=== PATIENT | male | born 1945 | race Caucasian/White ===

== ENCOUNTER 2016-08-18 14:50 | Emergency (ER) | payer MEDICARE, OTHER ==
[2016-08-18] MEDS ORDERED: NORMAL SALINE 1,000 ML IV PRN (16:03)
--- NOTE | 2016-08-18 16:11 | ERNOTE ---
Medical Problem HPI - Narrative Date of Service: 08/18/16 - General Chief Complaint: General Assessment Time Seen by Provider: 08/18/16 15:53 Source: patient Exam Limitations: no limitations - Immun/Allergies/Home Medications Immunizations: IMMUNIZATION HX Immunizations Up to Date Yes History of Influenza Vaccine Yes Hx Pneumococcal Vaccination Yes Allergies/Adverse Reactions: Allergies morphine Allergy (Severe, Verified 08/04/16 11:41) Shortness of Breath atorvastatin calcium [From Lipitor] Adverse Reaction (Mild, Verified 08/04/16 11 :41) swelling in joints so pt stopped med and started on Crestor Home Medications: HOME MEDICATIONS Aspirin [Aspirin Enteric Coated] 81 mg PO DAILY 03/01/14 [Last Taken 04/20/14] Nitroglycerin 0.4 mg SL Q5MIN PRN 03/01/14 [Last Taken 04/20/14] Rosuvastatin Calcium [Crestor] 40 mg PO HS 03/01/14 [Last Taken 07/30/14] Ramipril 10 mg PO DAILY 10/04/15 [Last Taken Unknown] amLODIPine BESYLATE [Norvasc] 5 mg PO DAILY 10/04/15 [Last Taken Unknown] Doxazosin Mesylate [Cardura] 1 mg PO DAILY 08/18/16 [Last Taken Unknown] Famotidine [Pepcid AC] 20 mg PO TID PRN 08/18/16 [Last Taken Unknown] Metoprolol Tartrate [Lopressor] 100 mg PO BID 08/18/16 [Last Taken Unknown] - Pain Score Pain Score #1 Pain Score: 1 - History of Present History Narrative: The patient present to the ER, he was sent over by his family physician. He has a known history of pancreatitis, he presently is on nasogastric feeding. He had an acute flareup over 4 weeks ago which he was hospitalized in [place]. It looked as though his lipase was improving but today it's quite elevated. Patient denies any chest pain shortness of breath as a very minimal abdominal pain. denies any fever denies any diarrhea. no headache or dizziness. Doctor had sent him here to be evaluated and consideration to get him off his nasogastric feeds kept nothing by mouth and possibly sent back to [facility] clinics. Date (Duration): 07/21/16 Timing: unsure Severity: mild Review of Systems - Review of Systems Constitutional: Absent: fever, chills, diaphoresis EYE: Present: no symptoms reported ENT: Present: no symptoms reported Respiratory: Absent: shortness of breath, cough, orthopnea Cardiology: Present: no symptoms reported Gastrointestinal/Abdominal: Present: abdominal pain - minimal to no abdominal pain. Absent: nausea, vomiting, diarrhea, constipation Genitourinary: Present: no symptoms reported Musculoskeletal: Present: no symptoms reported Skin: Present: no symptoms reported - Patient's Past Medical History Patient History - Medical: Renal Disease Patient History - Cardiac/Respiratory: Aneurysm, Coronary Heart Disease, Hypertension, Hyperlipidemia Patient History - Cancer: No Hx of Cancer Patient History - Surgical Procedures: Cholecystectomy, Coronary Bypass Surgery , Cardiac stent, Other - Family History Father Family History - Medical: Family History - Cardiac/Respiratory: Myocardial Infarction mothrt Family History - Medical: Family History - Cardiac/Respiratory: No pertinent hx - Social History Living Situations: home Does anyone smoke in the home?: No Smoking Status: Never smoker Alcohol Use: occasionally Drug Use: none Physical Exam - Physical Exam General Appearance: Present: wd/wn, alert, no apparent distress Eye Exam: Normal inspection: bilateral Ears, Nose, Throat: Present: normal ENT inspection, hearing grossly normal, normal pharynx Neck: Present: normal inspection, nontender, supple Respiratory: Present: no respiratory distress, normal breath sounds, no accessory muscle use, chest nontender, lungs clear Cardiovascular/Chest: Present: regular rate, rhythm, no murmur, normal peripheral pulses Gastrointestinal/Abdominal: Present: normal bowel sounds, nondistended, soft, no organomegaly, tenderness - mild tenderness to the epigastric area. Absent: guarding, rebound, McBurney sign, Schaffer sign Extremity Exam: Present: normal inspection, non-tender Neurological Exam: Present: alert, oriented, normal mood/affect, no motor/ sensory deficits Skin Exam: Present: normal color, warm/dry Lymphatic Exam: Present: no adenopathy ED Progress - Date and Time Seen: Date and Time: 08/18/16 18:08 Today - Results and Orders Patient's Lab Results:: I have reviewed the patient's lab results. - Vital Signs Patient's Vital Signs:: I have reviewed the patient's vital signs. Vital Signs: Vital Signs 08/18/16 15:10 Temperature 36.0 C L Pulse Rate 67 Respiratory 16 Rate Blood Pressure 108/59 O2 Sat by Pulse 95 Oximetry - X-Ray X-Ray #1 X-Ray: abdomen Interpretation: Reviewed by me - no acute changes - Progress/Reassessment Chief Complaint: General Assessment Progress:: Unchanged - Transfer of Care Expected Disposition: Transfer - mayer to be transferred to the [facility] in clinic, setting physician was Dr. Vazquez Additional Notes: The case with Dr. Woodson gastroenterologists with [place] at [facility]. Discussed the details of the patient's history as lab work finding as well as x- ray suggested patient should be transferred to [facility], Dr. Woodson feels a patient's running into complicated aspect of his acute pancreatitis he may need further evaluation such as maybe an MRCP. Talked about transferring to [facility] he suggested patient would be best served going to [place] at [facility]. Once again accepting physician was Dr. Vazquez. Departure - Departure Clinical Impression: Acute pancreatitis Disposition: [facility] Additional Instructions: Patient being transferred to the [facility] accepting physician was Dr. Vazquez discussed this with the patient and family who are also in agreement. Referrals: Balta Fernandez MD [Primary Care Provider] -
[2016-08-18 16:34] LABS: Hematocrit 33.6 % (42.0-52.0); Hemoglobin 11.2 gm/dL (13.5-18.0); Mean Cell Volume 96.3 fl (78-100); Mean Corpuscular Hemoglobin 32.1 pg (27-31); Mean Corpuscular Hgb Conc 33.3 g/dl (32-36); Mean Platelet Volume 9.4 fl (6.0-9.5); Neutrophil # 13.8 K/mm3 (1.3-6.0); Neutrophil % 77.8 % (42-75.0); Platelet Count 208 K/mm3 (150-450); Red Blood Count 3.49 M/mm3 (4.7-6.0); White Blood Count 17.8 K/mm3 (4.0-10.5)
[2016-08-18 16:46] LABS: Albumin * 2.8 gm/dl (3.4-5.0); Anion Gap 8.7 mmol/L (6.8-13.8); Bilirubin, Total 0.8 mg/dL (0.0-1.1); CRP 11.4 mg/dL (0.0-0.9); Ca. Corrected For Albumin 10.1 mg/dL (8.4-10.2); Calcium * 9.5 mg/dL (7.9-10.9); Carbon Dioxide 31.7 mmol/L (24-32.6); Potassium 4.4 mmol/L (3.4-4.6); Total Protein 7.5 gm/dL (6.2-8.2)
[2016-08-18 19:05] VITALS: BP 107/67
== END 2016-08-18 19:34 | disposition short-term general hospital (02) ==
LOC: ER 14:50
DX: K85.90 Acute pancreatitis without necrosis or infection, unspecified (principal); Z90.49 Acquired absence of other specified parts of digestive tract; Z95.5 Presence of coronary angioplasty implant and graft

== ENCOUNTER 2016-08-24 22:17 | Inpatient (IN) | payer MEDICARE, OTHER ==
[2016-08-24 22:42] LABS: Hematocrit 31.8 % (42.0-52.0); Hemoglobin 10.5 gm/dL (13.5-18.0); Mean Cell Volume 95.8 fl (78-100); Mean Corpuscular Hemoglobin 31.6 pg (27-31); Mean Platelet Volume 9.2 fl (6.0-9.5); Neutrophil # 11.3 K/mm3 (1.3-6.0); Neutrophil % 78.3 % (42-75.0); Platelet Count 186 K/mm3 (150-450); Red Blood Count 3.32 M/mm3 (4.7-6.0); Red Cell Distribution Width 14.4 % (11.5-14.0); White Blood Count 14.5 K/mm3 (4.0-10.5)
[2016-08-24 22:52] LABS: Prothrombin Time (Patient) 10.6 Seconds (9.4-11.4)
[2016-08-24 22:53] LABS: INR 1.02 INR (0.90-1.10)
[2016-08-24 22:59] LABS: ALT 34 U/L (19-67); AST 24 U/L (0-48); Albumin * 2.9 gm/dl (3.4-5.0); Alkaline Phosphatase * 100 U/L (50-170); Anion Gap 10.2 mmol/L (6.8-13.8); BUN/Creatinine Ratio 20.9 (9.0-21.6); Bilirubin, Total 0.6 mg/dL (0.0-1.1); Blood Urea Nitrogen 36 mg/dL (6-23); Ca. Corrected For Albumin 9.9 mg/dL (8.4-10.2); Calcium * 9.3 mg/dL (7.9-10.9); Carbon Dioxide 29.6 mmol/L (24-32.6); Chloride 102 mmol/L (97-106); Glucose * 126 mg/dL (70-110); Potassium 3.8 mmol/L (3.4-4.6); Sodium 138 mmol/L (132-142); Total Protein 7.2 gm/dL (6.2-8.2)
[2016-08-24 23:00] LABS: Troponin I Less than 0.017 ng/ml (0.00-0.10)
--- NOTE | 2016-08-24 23:37 | ERNOTE ---
Chest Pain/Cardiac HPI Chief Complaint: Chest Pain Time Seen by Provider: 08/24/16 22:28 Source: patient Exam Limitations: no limitations Immunizations: IMMUNIZATION HX Immunizations Up to Date Yes History of Influenza Vaccine Yes Hx Pneumococcal Vaccination Yes Allergies/Adverse Reactions: Allergies morphine Allergy (Severe, Verified 08/04/16 11:41) Shortness of Breath atorvastatin calcium [From Lipitor] Adverse Reaction (Mild, Verified 08/25/16 01 :30) Other swelling in joints so pt stopped med and started on Crestor Home Medications: HOME MEDICATIONS Aspirin [Aspirin Enteric Coated] 81 mg PO DAILY 03/01/14 [Last Taken 04/20/14] Nitroglycerin 0.4 mg SL Q5MIN PRN 03/01/14 [Last Taken 04/20/14] Rosuvastatin Calcium [Crestor] 40 mg PO HS 03/01/14 [Last Taken 07/30/14] amLODIPine BESYLATE [Norvasc] 10 mg PO DAILY 10/04/15 [Last Taken Unknown] Doxazosin Mesylate [Cardura] 1 mg PO DAILY 08/18/16 [Last Taken Unknown] Famotidine [Pepcid AC] 20 mg PO TID PRN 08/18/16 [Last Taken Unknown] Metoprolol Tartrate [Lopressor] 100 mg PO BID 08/18/16 [Last Taken Unknown] Nystatin [Mycostatin 100 Mu/Ml Suspension] 10 ml PO QID 08/24/16 [Last Taken Unknown] Narrative: Chest pain tonight improved with nitro somewhat. Pt called EMS and they found him in mild distress gave another nitro which helped somewhat. pt has recent hospitalization for pancreatitis Timing: intermittent Severity/Quality: moderate Location: substernal, left chest Chest Pain Radiation: jaw, arms - left Activities at Onset: none Modifying Factors - Improves: Present: morphine Nitro Today/Relief: 0.4 mg x 2, provided by EMS, provided at home, mild relief Aspirin Treatment Today: 325 mg x 1 Prior Treatment: Reports: recently seen, treated by physician - admitted for pancreatitis Review of Systems - Review of Systems Constitutional: Absent: recent illness, weakness, fatigue EYE: Present: no symptoms reported ENT: Present: no symptoms reported Respiratory: Present: no symptoms reported, shortness of breath Cardiology: Present: no symptoms reported, chest pain Gastrointestinal/Abdominal: Present: no symptoms reported Genitourinary: Present: no symptoms reported Musculoskeletal: Present: no symptoms reported Skin: Present: no symptoms reported Neurological: Present: no symptoms reported Endocrine: Present: no symptoms reported Hematologic/Lymphatic: Present: no symptoms reported Psych: Present: no symptoms reported - Patient's Past Medical History Patient History - Medical: Renal Disease, Other Patient History - Cardiac/Respiratory: Aneurysm, Coronary Heart Disease, Hypertension, Hyperlipidemia Patient History - Cancer: No Hx of Cancer Patient History - Surgical Procedures: Cholecystectomy, Coronary Bypass Surgery , Cardiac stent, Other - Family History Father Family History - Medical: Family History - Cardiac/Respiratory: Myocardial Infarction mothrt Family History - Medical: Family History - Cardiac/Respiratory: No pertinent hx - Social History Living Situations: home Does anyone smoke in the home?: No Smoking Status: Former smoker Have you smoked in the past 12 months: No Do you dip or chew tobacco: No Alcohol Use: occasionally Drug Use: none Physical Exam - Physical Exam General Appearance: Present: wd/wn, alert, mild distress Eye Exam: Normal inspection: bilateral Ears, Nose, Throat: Present: normal ENT inspection, hearing grossly normal Neck: Present: normal inspection, nontender Respiratory: Present: no respiratory distress, normal breath sounds, no accessory muscle use Cardiovascular/Chest: Present: regular rate, rhythm, no murmur, normal peripheral pulses Gastrointestinal/Abdominal: Present: nondistended, soft, tenderness - epigastric Back Exam: Present: no vertebral tenderness Extremity Exam: Present: normal inspection, non-tender, no edema, normal range of motion Neurological Exam: Present: alert, oriented, normal mood/affect, no motor/ sensory deficits Skin Exam: Present: normal color, warm/dry Lymphatic Exam: Present: no adenopathy ED Progress - Results and Orders Patient's Lab Results:: I have reviewed the patient's lab results. Results and Orders: Laboratory Tests 08/24/16 08/24/16 08/24/16 22:36 22:36 22:36 WBC 14.5 H Hgb 10.5 L Hct 31.8 L Plt Count 186 Neutrophils % 78.3 H PT 10.6 INR (Anticoag Therapy) 1.02 PTT (Elina) 22.0 L Sodium 138 Potassium 3.8 Chloride 102 Carbon Dioxide 29.6 Anion Gap 10.2 BUN 36 H Creatinine 1.72 H Est GFR (Non-Af Amer) 42 L Random Glucose 126 H Calcium 9.3 Total Bilirubin 0.6 AST 24 ALT 34 Alkaline Phosphatase 100 Troponin I Less than 0.017 Total Protein 7.2 Albumin 2.9 L Amylase Lipase 08/24/16 23:56 WBC Hgb Hct Plt Count Neutrophils % PT INR (Anticoag Therapy) PTT (Walker) Sodium Potassium Chloride Carbon Dioxide Anion Gap BUN Creatinine Est GFR (Non-Af Amer) Random Glucose Calcium Total Bilirubin AST ALT Alkaline Phosphatase Troponin I Total Protein Albumin Amylase 278 H Lipase 3989 H - Vital Signs Patient's Vital Signs:: I have reviewed the patient's vital signs. Vital Signs: Vital Signs 08/24/16 08/24/16 22:19 22:30 Temperature 36.8 C Pulse Rate 88 88 Respiratory 18 Rate Blood Pressure 105/65 O2 Sat by Pulse 96 Oximetry - Progress/Reassessment Chief Complaint: Chest Pain Progress Note-Subjective: 08/25/16 01:33 Spoke with Tabitha LAN she agrees with admit. Pt having pain, discussed morphine allergy with pt and his . states she is sure he has had Dilaudid without any problem since the morphine reaction. Departure - Departure Clinical Impression: Acute pancreatitis Qualifiers: Pancreatitis type: unspecified pancreatitis type Acute pancreatitis complication: unspecified Qualified Code(s): K85.90 - Acute pancreatitis without necrosis or infection, unspecified Disposition: [facility] Condition: Fair
[2016-08-25 00:05] LABS: Amylase * 278 U/L (25-115)
[2016-08-25 00:17] LABS: Lipase 3989 U/L (73-393)
[2016-08-25] MEDS ORDERED: HYDROmorphone HCL 1 MG/ML DISP.SYRIN ONE (01:33)
[2016-08-25] MEDS: HYDROmorphone HCL 1 MG/ML DISP.SYRIN IV PRN ×4 (01:35→20:37)
--- NOTE | 2016-08-25 02:40 | HP ---
Chief Complaint - Chief Complaint Date of Service: 08/25/16 Time of Service: 06:05 Chief Complaint: pancreatitis History of Present Illness: Pt is a 71 year old male of Dr. Fernandez with a PMH significant for: chronic pancreatitis, renal failure, HTN, and HLD. Who presented to the ER last night with complaints of mid-epigastric pain. Pt states pain started around 8pm yesterday (08/24/16) it started in the midepigastric area and radiated around his left side up his left shoulder. He endorses feeling dizzy and diaphoretic. Denies fever/chills, n/v/d, or palpations. July 10, 2016 he had similar pain but it was much worse and he was admitted to the hospital with this current bought of pancreatitis. He took 1 nitro at home, states that it helped a little. Rates pain an 8/10 shooting in nature that comes and goes. He was just sitting in his chair when the pain began. Sitting still makes it feel better and inhalation make it worse. He states that he has been dealing with pancreatitis since end of April 2016, and then in July had another flare up. Has continuous tube feeding that terminates in the small intestines. Yesterday was unhooked most of the day and endorses pain worsening when he was hooked back up. In the ER laboratory findings WBC 14.2, H/H 10.5/31.8, Na+ 138, K+ 3.8, BUN/Creat 36/1.72, amylase 278, lipase 3989, negative troponin. Chest xray was without significant findings. He will be admitted to in pt for further treatment and workup of his pancreatitis. - Patient's Past Medical History Patient History - Medical: Renal Disease, Other - chronic pancreatitis Patient History - Cardiac/Respiratory: Aneurysm, Coronary Heart Disease, Hypertension, Hyperlipidemia Patient History - Cancer: No Hx of Cancer Patient History - Surgical Procedures: Cholecystectomy, Coronary Bypass Surgery - , Cardiac stent - 2009, Other Patient History - Other: None - Family History Father Family History - Medical: Family History - Cardiac/Respiratory: Myocardial Infarction mothrt Family History - Medical: Family History - Cardiac/Respiratory: No pertinent hx Family History - Cancer: Breast - Social History Living Situations: home Does anyone smoke in the home?: No Smoking Status: Former smoker Have you smoked in the past 12 months: No Do you dip or chew tobacco: No Alcohol Use: occasionally Drug Use: none - Immunizations Immunizations Up to Date: Yes Hx Pneumococcal Vaccination: Yes History of Influenza Vaccine: Yes Review Of Systems (GEN) - Review of Systems Generalized/Overall Review: Present: No Symptoms Reported EENTM: Present: No Symptoms Reported Respiratory: Present: No Symptoms Reported Cardiac: Present: No Symptoms Reported Abdominal: Present: Abdominal Pain Genitourinary: Present: No Symptoms Reported Musculoskeletal: Present: No Symptoms Reported Neurological: Present: No Symptoms Reported Skin: Present: No Symptoms Reported Allergies/Adverse Reactions: Allergies Allergy/AdvReac Type Severity Reaction Status Date / Time morphine Allergy Severe Shortness Verified 08/04/16 11:41 of Breath atorvastatin calcium AdvReac Mild Other Verified 08/25/16 01:30 [From [employer] Home Medications: HOME MEDICATIONS Aspirin [Aspirin Enteric Coated] 81 mg PO DAILY 03/01/14 [Last Taken 04/20/14] Nitroglycerin 0.4 mg SL Q5MIN PRN 03/01/14 [Last Taken 04/20/14] Rosuvastatin Calcium [Crestor] 40 mg PO HS 03/01/14 [Last Taken 07/30/14] amLODIPine BESYLATE [Norvasc] 10 mg PO DAILY 10/04/15 [Last Taken Unknown] Doxazosin Mesylate [Cardura] 1 mg PO DAILY 08/18/16 [Last Taken Unknown] Famotidine [Pepcid AC] 20 mg PO TID PRN 08/18/16 [Last Taken Unknown] Metoprolol Tartrate [Lopressor] 100 mg PO BID 08/18/16 [Last Taken Unknown] Nystatin [Mycostatin 100 Mu/Ml Suspension] 10 ml PO QID 08/24/16 [Last Taken Unknown] Lactose-Reduced Food [Osmolite 1.2 Arturo] 65 ml NG Q1H 08/25/16 [Last Taken Unknown] Exam - Exam Vital Signs: Vital Signs - Last Taken Temp 36.6 C 08/25/16 02:23 Pulse 96 08/25/16 02:23 Resp 16 08/25/16 02:23 BP 143/85 08/25/16 02:23 Pulse Ox 92 RA 08/25/16 02:23 Constitutional: Present: Alert, Oriented x3, Cooperative, No distress, Elderly ENT Exam: Present: hearing grossly normal Eye Exam: bilateral eye: normal inspection, PERRL Back Exam: Present: normal inspection Respiratory: Present: chest non-tender, normal breath sounds, no respiratory distress, no accessory muscle use, decreased breath sounds Cardiovascular/Chest: Present: normal peripheral pulses, no chest tenderness, no edema, no murmur, irregularly irregular Peripheral Pulses: dorsalis-pedis (R): 2+, dorsalis-pedis (L): 2+, radial (R): 2 +, radial (L): 2+ Abdomen: Present: Normal bowel sounds, soft, nondistended, no rebound tenderness , no hepatospenomegaly, tender - tenderness to SARAH/LL quaderant, other - Keofeed tube in place, xray confirms terminates in small intestines /Rectal: Present: Exam deferred Extremity: Present: normal range of motion, non-tender, normal inspection, no pedal edema, no calf tenderness, normal capillary refill Skin Exam: Present: normal color, warm/dry, no cyanosis Lymphatic: Present: no adenopathy Neurologic: Present: no motor/sensory deficits, alert, normal mood/affect, oriented x 3 Appearance: Present: appropriate appearance, appropriate insight, neat, no memory impairment Eye contact: Present: cooperative, good eye contact, normal speech Thoughts: Present: normal thought pattern, no apparent hallucination Diagnostic Studies: Laboratory Results Laboratory Tests 08/24/16 08/24/16 08/24/16 22:36 22:36 22:36 WBC 14.5 H Hgb 10.5 L Hct 31.8 L Plt Count 186 Immature Gran # (Auto) 0.06 H Neutrophils % 78.3 H Lymphocytes % 14.2 L Neutrophils # 11.3 H PT 10.6 INR (Anticoag Therapy) 1.02 PTT (Elina) 22.0 L Sodium 138 Potassium 3.8 Chloride 102 BUN 36 H Creatinine 1.72 H Est GFR (Non-Af Amer) 42 L AST 24 ALT 34 Alkaline Phosphatase 100 Troponin I Less than 0.017 Total Protein 7.2 Albumin 2.9 L Amylase Lipase 08/24/16 23:56 WBC Hgb Hct Plt Count Immature Gran # (Auto) Neutrophils % Lymphocytes % Neutrophils # PT INR (Anticoag Therapy) PTT (Norman) Sodium Potassium Chloride BUN Creatinine Est GFR (Non-Af Amer) AST ALT Alkaline Phosphatase Troponin I Total Protein Albumin Amylase 278 H Lipase 3989 H Assessment/Plan - Assessment/Plan (1) Acute pancreatitis Assessment: Pt with history of chronic pancreatitis. Has been NPO with continuous TF via keofeed that terminates in the small intestine since July. Amylase 278 down from previous levels on 08/18/16 of 362. Lipase elevated at 3989 up from 1312 on 08/18/16. Will keep NPO without TF for pancreatic rest and hydrate with MIVF. Will need abdominal CT for further evaluation, see if kidney function improves on am labs, although baseline is 1.7. -CMP/CBC -Amylase/Lipase -NPO -MIVF D5.45 with 20meq K @ 150ml/hr -CT abdomen Problem: Chronic Qualifiers: Pancreatitis type: unspecified pancreatitis type Acute pancreatitis complication: unspecified Qualified Code(s): K85.90 - Acute pancreatitis without necrosis or infection, unspecified (2) Chronic renal disease, stage 3, moderately decreased glomerular filtration rate (GFR) between 30-59 mL/min/1.73 square meter Assessment: Pt with CRF, baseline creatinine 1.7---36/1.72 on admission. Will repeat labs in am. -CMP in am Problem: Chronic (3) Hypertension Problem: Chronic Qualifiers:
[2016-08-25] MEDS ORDERED: ONDANSETRON HCL/PF 2 MG/ML VIAL IV PRN (02:45)
[2016-08-25] MEDS ORDERED: POTASSIUM CHLORIDE 10 MEQ in DEXTROSE 5%-0.5 NORMAL SALINE 995 ML IV SCH (02:45)
[2016-08-25] MEDS: POTASSIUM CHLORIDE IV SCH ×5 (03:24→18:03)
[2016-08-25] MEDS: [UNRECOGNIZED DRUG - OTHER] IV SCH ×5 (03:24→18:03)
[2016-08-25] MEDS: DEXTROSE 5% IV SCH ×5 (03:24→18:03)
[2016-08-25 07:23] LABS: Amylase * 477 U/L (25-115)
[2016-08-25 07:24] LABS: Lipase 3840 U/L (73-393)
[2016-08-25 07:34] LABS: Hematocrit 31.5 % (42.0-52.0); Hemoglobin 10.5 gm/dL (13.5-18.0); Mean Cell Volume 95.5 fl (78-100); Mean Corpuscular Hemoglobin 31.8 pg (27-31); Mean Corpuscular Hgb Conc 33.3 g/dl (32-36); Mean Platelet Volume 9.8 fl (6.0-9.5); Neutrophil % 83.1 % (42-75.0); Platelet Count 185 K/mm3 (150-450); Red Cell Distribution Width 14.6 % (11.5-14.0); White Blood Count 12.1 K/mm3 (4.0-10.5)
--- NOTE | 2016-08-25 07:57 | PN ---
Progess Note - Interim Narrative: 08/25/16 07:55 Pt seen this am. Reviewed notes from IC. There was mention of possible pseudocyst or necrotizing pancreatitis. Will see if labs are improving and if not will consider contrast CT with premedication to rule these out. If labs are improving I am wondering if this is all due to bile stones that are being passed and doing something for this may be beneficial.
[2016-08-25] MEDS ORDERED: ENOXAPARIN SODIUM 40 MG/0.4 ML SYRG SC SCH ×2 (08:00→17:45)
[2016-08-25] MEDS ORDERED: DIATRIZOATE MEGLUMINE, SODIUM 30 ML BTL PO ONE (14:44)
[2016-08-25 17:18] LABS: Hematocrit 31.8 % (42.0-52.0); Hemoglobin 10.5 gm/dL (13.5-18.0); Mean Cell Volume 96.1 fl (78-100); Mean Corpuscular Hemoglobin 31.7 pg (27-31); Mean Platelet Volume 9.2 fl (6.0-9.5); Neutrophil # 7.7 K/mm3 (1.3-6.0); Neutrophil % 72.6 % (42-75.0); Platelet Count 161 K/mm3 (150-450); Red Blood Count 3.31 M/mm3 (4.7-6.0); Red Cell Distribution Width 14.5 % (11.5-14.0); White Blood Count 10.6 K/mm3 (4.0-10.5)
[2016-08-25 17:31] LABS: Anion Gap 11.5 mmol/L (6.8-13.8); BUN/Creatinine Ratio 17.1 (9.0-21.6); Carbon Dioxide 26.7 mmol/L (24-32.6); Estimated Creat Clear 40.8; Potassium 4.2 mmol/L (3.4-4.6)
--- NOTE | 2016-08-25 17:36 | DS ---
Transfer Discharge Summary - Course Description of Stay: Pt. admitted last night for acute pancreatitis. Review of previous hospitalization from [facility] revealed concern for possible pseudocyst formation, but because of elevated Cr and resolution of enzymes, contrast CT was not done. With return of his sx and elevation of his amylase and lipase to a much greater degree than prior visit (3900 vs. 1300) US was done which showed concern for pseudocyst so contrast CT was done given his GFR was 42 (Cr 1.7). Results did indeed show a pseudocyst which our radiologists did not feel was amenable to CT guided drainage here, felt it was appropriate to try to transfer pt. to [facility] for further tx. Also of note on the CT was some pelvic fluid that may becoming loculated, thrombosis of the superior mesenteric vein, marked swelling around the duodenum, pyloric channel and gastric outlet. Additionally there was mention of enlargement of an aneurysmal sac from 6.5cm to 7cm with a type II endoleak. Pt. was otherwise stable, though still complained of GAVI to LUQ pain that had changed very little during the course of his stay. His amylase last night was 278 to 477 this am. Lipase was 3989 2330 to 3840 at 0630. repeat labs were ordered this pm, but are pending at this time. Spoke with Dr. Pate who was willing to accept patient in transfer when a bed became available. Because of the superior mesenteric thrombosis lovenox was started at 70mg q12 (wt was 74.2kg) for a 1mg/kg IDBW dose. Pt. remained NPO during his stay with the exception of oral contrast. Pain control was through IV. Appreciate [facility] help in this matter and congenial and collegial manner of accepting this patient. Procedures Performed: none - Results and Findings Results and Findings: Laboratory Results - last 24 hr 08/25/16 08/25/16 08/25/16 06:50 06:50 16:58 WBC 12.1 H 10.6 H RBC 3.30 L 3.31 L Hgb 10.5 L 10.5 L Hct 31.5 L 31.8 L MCV 95.5 96.1 MCH 31.8 H 31.7 H MCHC 33.3 33.0 RDW 14.6 H 14.5 H Plt Count 185 161 MPV 9.8 H 9.2 Immature Gran % (Auto) 0.30 0.50 H Immature Gran # (Auto) 0.04 H 0.05 H Neutrophils % 83.1 H 72.6 Lymphocytes % 9.6 L 19.2 L Monocytes % 6.2 6.7 Eosinophils % 0.6 0.9 Basophils % 0.2 0.1 Nucleated RBC % 0.0 0.0 Neutrophils # 10.0 H 7.7 H Lymphocytes # 1.2 L 2.0 Monocytes # 0.8 0.7 Eosinophils # 0.1 0.1 Absolute Basophils 0.0 0.0 Amylase 477 H Lipase 3840 H - Medications Medications: Active Medications See Mar as this section did not update properly. - Disposition Disposition: [facility] Condition: Fair
[2016-08-25] MEDS ORDERED: ENOXAPARIN SODIUM 40 MG, ENOXAPARIN SODIUM 30 MG SC SCH ×2 (17:45)
[2016-08-25 22:51] VITALS: BP 174/82
== END 2016-08-25 20:33 | disposition short-term general hospital (02) | DRG 438 ==
LOC: ER 22:17 → MS 08-25 01:18
PROVIDERS: ADMIT Nurse Practitioner Gerontology; ATTEND Family Medicine
DX: K85.90 Acute pancreatitis without necrosis or infection, unspecified (principal); I81 Portal vein thrombosis; K86.3 Pseudocyst of pancreas; D72.829 Elevated white blood cell count, unspecified; I12.9 Hypertensive chronic kidney disease with stage 1 through stage 4 chronic kidney disease, or unspecified chronic kidney disease; N18.3 Chronic kidney disease, stage 3 (moderate); E78.5 Hyperlipidemia, unspecified; Z79.82 Long term (current) use of aspirin